=== PATIENT | male | born 1975 | race Hispanic/Latino ===

== ENCOUNTER 2017-09-29 16:12 | Outpatient (CLI) | payer BC ==
--- NOTE | 2017-09-29 19:42 | RAD ---
LEFT KNEE THREE VIEWS: History: Left knee pain. FINDINGS: Joint spaces are preserved. No significant degenerative change. No joint effusion. No fracture. IMPRESSION: Unremarkable left knee. POS: [facility]
== END 2017-09-29 16:13 | disposition home or self-care (01) ==
LOC: SCSRAD 16:12
PROVIDERS: ATTEND Family Medicine
DX: M25.562 Pain in left knee (principal)
CPT/HCPCS: 36415; 84550